=== PATIENT | female | born 2000 | race Caucasian/White ===

== ENCOUNTER 2021-03-17 04:26 | Emergency (ER) | payer OTHER, SELFPAY ==
--- NOTE | ~2021-03-17 | XR_ITS ---
EXAMINATION: XR chest 1V portable DATE: 03/17/2021 08:43 INDICATION: Overdose. TECHNIQUE: A single frontal view of the chest was obtained. COMPARISON: None. FINDINGS: There is no pneumonia, pleural effusion, or pneumothorax. The heart size is normal. IMPRESSION: 1. No acute cardiopulmonary disease. Reviewed, dictated and finalized at location A.
[2021-03-17 04:35] VITALS: BP 136/85; PULSE 81; RESP 20; TEMP 36.6; O2SAT 98
--- NOTE | 2021-03-17 05:31 | ED.OVERDOSE ---
HPI - Overdose General Chief Complaint: Overdose <Andrea Livingston MD - Last Filed: 03/17/21 07:13> Stated Complaint: blue in the face , took percocet <Andrea Livingston MD - Last Filed: 03/17/21 07:13> Time Seen by Provider: 03/17/21 05:24 <Andrea Livingston MD - Last Filed: 03/17/21 07:13> Source: patient <Andrea Livingston MD - Last Filed: 03/17/21 07:13> Mode of arrival: ambulatory <Andrea Livingston MD - Last Filed: 03/17/21 07:13> Limitations: no limitations <Andrea Livingston MD - Last Filed: 03/17/21 07:13> History of Present Illness HPI Narrative: Patient is a 20-year-old female brought in by EMS after snorting fentanyl. Patient somnolent. Patient denies any headache, dizziness, chest pain, shortness of breath abdominal pain, nausea, vomiting, diarrhea, fever or chills. Patient denies suicidal or homicidal ideations. Patient denies any thoughts of hurting herself. Patient states that she took the drug to get high. <Andrea Livingston MD - Last Filed: 03/17/21 07:13> Related Data Home Medications: Home Medications Medication Instructions Recorded Confirmed No Home Medications 03/17/21 03/17/21 <Andrea Livingston MD - Last Filed: 03/17/21 07:13> Allergies/Adverse Reactions: Allergies Allergy/AdvReac Type Severity Reaction Status Date / Time No Known Allergies Allergy Verified 03/17/21 04:41 <Andrea Livingston MD - Last Filed: 03/17/21 07:13> Review of Systems Review of Systems: All systems reviewed & are unremarkable except as noted in HPI and below <Andrea Livingston MD - Last Filed: 03/17/21 07:13> Constitutional: Constitutional: Denies body ache(s), Denies chills, Denies excessive sweating, Denies fatigue, Denies fever(s), Denies headache(s), Denies lethargy, Denies malaise, Denies weakness and Denies weight loss <Andrea Livingston MD - Last Filed: 03/17/21 07:13> Eyes: Eyes: Denies blurry vision, Denies change in vision and Denies loss of vision <Andrea Livingston MD - Last Filed: 03/17/21 07:13> ENT: Denies dizziness, Denies ear discharge, Denies headache(s), Denies lip swelling, Denies epistaxis, Denies nasal congestion, Denies neck pain, Denies throat swelling and Denies tongue swelling <Andrea Livingston MD - Last Filed: 03/17/21 07:13> Cardiovascular: Cardiovascular: Denies chest pain, Denies chest pain at rest, Denies chest pain with activity, Denies diaphoresis, Denies rapid heart rate, Denies edema, Denies irregular heart rhythm, Denies lightheadedness, Denies palpitations, Denies dyspnea and Denies dyspnea on exertion <Andrea Livingston MD - Last Filed: 03/17/21 07:13> Respiratory: Respiratory: Denies chest congestion, Denies cough, Denies hemoptysis, Denies dyspnea and Denies dyspnea on exertion <Andrea Livingston MD - Last Filed: 03/17/21 07:13> Gastrointestinal: Gastrointestinal: Denies abdominal pain, Denies melena, Denies hematochezia, Denies diarrhea, Denies nausea, Denies vomiting and Denies hematemesis <Andrea Livingston MD - Last Filed: 03/17/21 07:13> Musculoskeletal: Musculoskeletal: Denies abnormal gait, Denies deformity, Denies joint swelling, Denies limited range of motion, Denies neck pain and Denies numbness <Andrea Livingston MD - Last Filed: 03/17/21 07:13> Neurologic: Denies Abnormal speech present, Denies abnormal gait, Denies confusion, Denies dizziness, Denies headache(s), Denies focal weakness, Denies loss of vision, Denies numbness, Denies Other visual disturbances, Denies Sensory deficit (Neuro) and Denies weakness <Andrea Livingston MD - Last Filed: 03/17/21 07:13> Psychiatric: Psychiatric: Denies confusion, Denies depression, Denies auditory hallucinations, Denies homicidal ideation and Denies suicidal ideation <Andrea Livingston MD - Last Filed: 03/17/21 07:13> Endocrine: Endocrine: Denies cold intolerance, Denies excessive sweating, Denies fatigue, Denies heat intolerance and Denie
[2021-03-17 06:27] LABS: Basophils Percent Auto 0.2 % (0.2-1.2); Hematocrit 41.5 % (37.0-47.0); Hemoglobin 13.5 g/dL (12.0-15.0); Immature Granulocyte Absolute 0.12 K/mm3 (0.00-0.031); Immature Granulocyte Percent A 0.7 % (0-0.5); Lymphocytes Absolute Auto 1.29 K/mm3 (0.9-3.2); Lymphocytes Percent Auto 7.7 % (18.3-44.2); Mean Corpuscular HGB Conc 32.5 g/dl (32-36); Mean Corpuscular Hemoglobin 30.7 pg (26-34); Mean Corpuscular Volume 94.3 fl (80-100); Mean Platelet Volume 10.2 fl (7.4-10.4); Monocytes Absolute Auto 0.9 K/mm3 (0.1-0.6); Neutrophils Absolute Auto 14.6 K/mm3 (1.3-6.7); Neutrophils Percent Auto 86.4 % (45.5-73.1); Platelet Count Result 218 k/mm3 (150-375); Red Cell Distribution Width 12.8 % (11.5-14.5); White Blood Count 16.9 K/mm3 (4.5-10.0)
[2021-03-17 06:44] LABS: Barbiturate Screen Urine Negative (Negative); Benzodiazepines Screen Urine Negative (Negative)
[2021-03-17 06:59] VITALS: BP 111/63; PULSE 106; RESP 18; O2SAT 92
[2021-03-17 07:01] LABS: Amphetamine Screen Urine Negative (Negative); Cannabinoid Screen Urine Positive (Negative); Cocaine Screen Urine Negative (Negative); Methadone Screen Urine Negative (Negative); Opiate Screen Urine Negative (Negative); Phencyclidine Screen Urine Negative (Negative)
[2021-03-17 07:48] LABS: Acetaminophen < 10 ug/mL (10-30); Ethanol < 10 mg/dL (<10); Salicylate < 1.0 mg/dL (2-20)
[2021-03-17 07:50] LABS: Alanine Aminotransferase 17 U/L (4-35); Albumin Level 4.6 g/dL (3.7-5.6); Alkaline Phosphatase 59 U/L (45-116); Anion Gap 10 mmol/L (8-16); Aspartate Amino Transferase 21 U/L (14-36); Bilirubin,Total 0.3 mg/dL (0.2-1.3); Blood Urea Nitrogen 13 mg/dL (8-21); Calcium 9.7 mg/dL (8.9-10.7); Carbon Dioxide 27 mmol/L (22-30); Chloride 100 mmol/L (98-107); Estimated CRCL calculation 159 ml/min; Estimated Glomerular Filt Rate > 60; Glucose 125 mg/dL (65-110); Potassium 4.1 mmol/L (3.4-5.0); Sodium 137 mmol/L (134-143)
--- NOTE | 2021-03-17 09:08 | PC.NURSE ---
per Nancy at crisis, must call [facility] first because patient is < 22y/o.
--- NOTE | 2021-03-17 09:13 | PC.NURSE ---
Patient denied by [facility].
--- NOTE | 2021-03-17 09:16 | PC.NURSE ---
Per Vickie at Crisis she will talk with her [employer] supervisor about seeing patient because it's just an overdose and not a suicide attempt.
--- NOTE | 2021-03-17 09:32 | PC.NURSE ---
per Dr. Martinez, Dr. Livingston reported pt's mother stated pt was suicidal. This RN talked with mom and can confirm she believes pt was trying to harm herself. Mom states when pt was waking up, she was stating I just want to go back to sleep and that pt has had overdoses/attempts previously.
--- NOTE | 2021-03-17 09:38 | PC.NURSE ---
Vickie from Crisis updated on this RN findings and to come evaluate patient.
[2021-03-17 09:52] LABS: Add Urine Microscopic? YES; Appearance Urine Clear (Clear); Bilirubin Urine Negative (Negative); Blood Urine Negative (Negative); Color Urine Yellow (Yellow); Glucose Urine UA Negative (Negative); Ketones Urine Trace mg/dL (Negative); Leukocyte Esterase Ur Negative LEU/UL (Negative); Mucus Urine Few /lpf; Nitrate Urine Negative (Negative); Protein Urine 1+ mg/dL (Negative); RBC Urine 0-2 /hpf (0-2); Specific Grav Ur 1.026 (1.001-1.035); Squamous Epithelial Cell Urine Rare /hpf (Few); Urobilinogen Urine Negative mg/dL (<2.0)
[2021-03-17 11:07] VITALS: BP 118/78; PULSE 88; RESP 16; O2SAT 100
--- NOTE | 2021-03-17 11:08 | PC.NURSE ---
Per Vickie at crisis, this patient to be d/c on a safety contract.
== END 2021-03-17 11:17 | disposition home or self-care (01) ==
PROVIDERS: General Practice; Emergency Provider Emergency Medicine
DX: T40.411A Poisoning by fentanyl or fentanyl analogs, accidental (unintentional), initial encounter (principal)
CPT/HCPCS: 36415; 71045; 80053; 80307; 81001; 81025; 85025; 99284

== ENCOUNTER 2022-01-27 22:29 | Emergency (ER) | payer OTHER, SELFPAY ==
[2022-01-27 22:32] VITALS: BP 133/79; PULSE 85; RESP 18; TEMP 36.5; O2SAT 97
--- NOTE | 2022-01-28 01:56 | PC.NURSE ---
pt did not answer when called at 0155 for room. will attempt to call at later time
--- NOTE | 2022-01-28 02:27 | PC.NURSE ---
pt called for room a second time and no present in ed waiting room. LWBS-T. time of departure unknown
== END 2022-01-28 01:56 | disposition left against medical advice (07) ==
LOC: ANHED 01-28 06:06
DX: R51.9 Headache, unspecified (principal)
CPT/HCPCS: 99199

== ENCOUNTER 2022-11-26 08:20 | Emergency (ER) | payer OTHER, SELFPAY ==
[2022-11-26 08:21] VITALS: BP 142/66; PULSE 93; TEMP 36.6; O2SAT 100
--- NOTE | 2022-11-26 08:40 | ECG_ITS ---
Measurements Intervals [place] Rate: 76 P: 47 OH: 159 QRS: 15 QRSD: 82 T: 39 QT: 357 QTc: 403 Interpretive Statements SINUS RHYTHM DELAYED PRECORDIAL R/S TRANSITION BORDERLINE ECG NO PREVIOUS ECG AVAILABLE FOR COMPARISON Electronically Signed On 11-26-2022 8:43:09 CDT by Abdulaziz Johnson D.O.
[2022-11-26] MEDS: LIDOCAINE HCL 2% VISC SOLN 15 ML UDC PO (09:36)
[2022-11-26] MEDS: MAG HYDROX/AL HYDROX/SIMETH 30 ML UDC PO (09:36)
[2022-11-26 10:10] LABS: Basophils Percent Auto 0.4 % (0.2-1.2); Eosinophils Absolute Auto 0.1 K/mm3 (0-0.3); Eosinophils Percent Auto 0.5 % (0-4.4); Hematocrit 35.2 % (37.0-47.0); Hemoglobin 11.5 g/dL (12.0-15.0); Immature Granulocyte Absolute 0.12 K/mm3 (0.00-0.031); Immature Granulocyte Percent A 1.1 % (0-0.5); Lymphocytes Absolute Auto 2.06 K/mm3 (0.9-3.2); Lymphocytes Percent Auto 19.1 % (18.3-44.2); Mean Corpuscular HGB Conc 32.7 g/dl (32-36); Mean Corpuscular Hemoglobin 30.7 pg (26-34); Mean Corpuscular Volume 94.1 fl (80-100); Monocytes Absolute Auto 0.6 K/mm3 (0.1-0.6); Monocytes Percent Auto 5.5 % (2.6-8.5); Neutrophils Absolute Auto 7.9 K/mm3 (1.3-6.7); Neutrophils Percent Auto 73.4 % (45.5-73.1); Platelet Count Result 230 k/mm3 (150-375); Red Blood Count 3.74 M/mm3 (4.2-5.4); Red Cell Distribution Width 13.3 % (11.5-14.5); White Blood Count 10.8 K/mm3 (4.5-10.0)
[2022-11-26 10:39] LABS: Appearance Urine Cloudy (Clear); Bacteria Urine 1+ /hpf; Bilirubin Urine Negative (Negative); Blood Urine Negative (Negative); Color Urine Yellow (Yellow); Glucose Urine UA Negative (Negative); Ketones Urine Negative (Negative); Leukocyte Esterase Ur Trace LEU/UL (Negative); Nitrate Urine Negative (Negative); Non Pathogenic Casts 0-2; Protein Urine Negative (Negative); RBC Urine 0-2 /hpf (0-2); Squamous Epithelial Cell Urine Moderate /hpf (Few); Urobilinogen Urine 0.2 mg/dL (<2.0); WBC Urine 0-5 /hpf
[2022-11-26 10:45] LABS: Alanine Aminotransferase 18 U/L (6-35); Albumin Level 4.1 g/dL (3.5-5.1); Alkaline Phosphatase 54 U/L (38-126); Anion Gap 6 mmol/L (8-16); Aspartate Amino Transferase 18 U/L (14-36); Bilirubin,Total 0.4 mg/dL (0.2-1.3); Blood Urea Nitrogen 6 mg/dL (7-17); Calcium 8.8 mg/dL (8.4-10.2); Carbon Dioxide 25 mmol/L (22-30); Chloride 105 mmol/L (98-107); Estimated CRCL calculation 186 ml/min; Estimated Glomerular Filt Rate > 60; Glucose 80 mg/dL (65-110); Lipase 36 U/L (23-300); Potassium 3.6 mmol/L (3.4-5.0); Sodium 136 mmol/L (137-145)
[2022-11-26 10:45] LABS: Add Urine Microscopic? YES
--- NOTE | 2022-11-26 12:23 | ED.SOB ---
HPI - SOB/Dyspnea General Chief Complaint: Shortness of Breath/Dyspnea Stated Complaint: 24wks SOB Time Seen by Provider: 11/26/22 08:48 History of Present Illness HPI Narrative: Patient is a 22-year-old female who is 24 weeks that presents ER with 2 separate complaints. First complaint is achiness to her right side of her abdomen and back ongoing over the last week. Associate with some urinary frequency. She does feel the baby move. No vaginal bleeding or discharge. No fevers or chills or sweats. She is also been having some shortness of breath. Unsure of any exacerbating factors. No runny nose or sore throat or productive cough. No fevers or chills. Related Data Allergies Allergy/AdvReac Type Severity Reaction Status Date / Time No Known Allergies Allergy Verified 11/26/22 08:20 Review of Systems Review of Systems: All systems reviewed & are unremarkable except as noted in HPI and below Constitutional: Constitutional: Denies chills, Denies fatigue and Denies fever(s) ENT: Denies nasal congestion and Denies sore throat Cardiovascular: Cardiovascular: Denies chest pain, Denies rapid heart rate and Denies radiating jaw, neck or arm pain Respiratory: Respiratory: Denies chest congestion, Denies cough, Reports dyspnea and Denies wheezing Gastrointestinal: Gastrointestinal: Reports abdominal pain, Denies diarrhea, Denies nausea and Denies vomiting Genitourinary: Genitourinary: Reports nocturia, Denies dysuria and Denies flank pain PMFSH Past Medical History Medical History (Updated 11/26/22 @ 13:05 by Beka Montoya MD) Bipolar disorder Surgical History Surgical History (Updated 11/26/22 @ 12:26 by Beka Montoya MD) No history of previous surgery Social History Social History Substance use type: marijuana and other Exam Narrative: GENERAL: Well-appearing, well-nourished, and in no acute distress. HEAD: Normocephalic, atraumatic. EYES: PERRL and EOMI. ENT: Mucous membranes moist. CHEST: Clear to auscultation. No respiratory distress. HEART: Regular rate and rhythm. Normal peripheral pulses. ABDOMEN: Soft, nontender, nondistended. Gravid uterus above umbilicus. EXTREMITIES: Normal range of motion. No edema. SKIN: Warm, dry, no rash. NEURO: Alert and oriented x3. PSYCH: Normal mood and affect. Course Vital Signs Vital signs: Vital Signs Temperature 97.8 F 11/26/22 08:21 Pulse Rate 93 11/26/22 08:21 Blood Pressure 142/66 H 11/26/22 08:21 Pulse Oximetry 100 11/26/22 08:21 Oxygen Delivery Room Air 11/26/22 08:21 Temperature 97.8 F 11/26/22 08:21 Pulse Rate 93 11/26/22 08:21 Blood Pressure 142/66 H 11/26/22 08:21 Pulse Oximetry 100 11/26/22 08:21 Oxygen Delivery Room Air 11/26/22 08:21 MDM - SOB/Dyspnea Lab Data 11/26/22 10:02 11/26/22 10:25 Labs: Lab Results 11/26/22 11/26/22 Range/Units 10:02 10:25 WBC 10.8 H (4.5-10.0) K/mm3 RBC 3.74 L (4.2-5.4) M/mm3 Hgb 11.5 L (12.0-15.0) g/dL Hct 35.2 L (37.0-47.0) % MCV 94.1 (80-100) fl MCH 30.7 (26-34) pg MCHC 32.7 (32-36) g/dl RDW 13.3 (11.5-14.5) % Plt Count 230 (150-375) k/mm3 MPV 10.0 (7.4-10.4) fl Immature Gran % (Auto) 1.1 H (0-0.5) % Neut % (Auto) 73.4 H (45.5-73.1) % Lymph % (Auto) 19.1 (18.3-44.2) % [place] % (Auto) 5.5 (2.6-8.5) % Eos % (Auto) 0.5 (0-4.4) % Baso % (Auto) 0.4 (0.2-1.2) % Lymph # (Auto) 2.06 (0.9-3.2) K/mm3 [place] # (Auto) 0.6 (0.1-0.6) K/mm3 Eos # (Auto) 0.1 (0-0.3) K/mm3 Baso # (Auto) 0.0 (0.0-0.1) K/mm3 Abs Immat Gran (auto) 0.12 H (0.00-0.031) K/mm3 Absolute Neuts (auto) 7.9 H (1.3-6.7) K/mm3 Absolute Nucleated RBC 0.0 (0.0-0.012) K/mm3 Nucleated RBC % 0.0 (0.0-0.2) % Sodium 136 L (137-145) mmol/L Potassium 3.6 (3.4-5.0) mmol/L Chloride 105 (98-107) mmol/L Carbon Dioxide 25 (22-30) mmol/L Anio
== END 2022-11-26 13:25 | disposition home or self-care (01) ==
PROVIDERS: Emergency Provider Emergency Medicine; PCP Obstetrics & Gynecology
DX: O26.892 Other specified pregnancy related conditions, second trimester (principal); R10.9 Unspecified abdominal pain; R06.00 Dyspnea, unspecified; Z3A.24 24 weeks gestation of pregnancy; R94.31 Abnormal electrocardiogram [ECG] [EKG]
CPT/HCPCS: 36415; 80053; 81001; 83690; 85025; 93005; 99283; A9270

== ENCOUNTER 2023-01-20 10:59 | Outpatient (CLI) | payer OTHER, SELFPAY ==
--- NOTE | ~2023-01-20 | US_ITS ---
Limited Abdominal Sonogram: Real-time sonographic imaging of the right upper quadrant was performed. Clinical History: Right upper quadrant pain Findings: The liver appears normal with no evidence of mass lesion or bile duct dilatation. Main por jean vein demonstrates normal direction of flow. The gallbladder is well distended, and appears normal with no evidence of gallstone or wall thickening. The common bile duct measures 4 mm. The visualize d pancreas, aorta, and IVC are unremarkable. Impression: No significant abnormality seen. Reviewed, dictated and finalized at location M. Impression: No significant abnormality seen.
== END 2023-01-20 11:00 | disposition home or self-care (01) ==
PROVIDERS: PCP Obstetrics & Gynecology; Visit Provider Obstetrics & Gynecology
DX: R10.11 Right upper quadrant pain (principal)
CPT/HCPCS: 76705

== ENCOUNTER 2023-02-25 05:45 | Inpatient (IN) | payer OTHER, MEDICAID, SELFPAY ==
[2023-02-25] VITALS (126 sets, daily range): BP systolic 93–164; BP diastolic 51–124; PULSE 66–129; RESP 15–18; TEMP 36.4–37.5; O2SAT 88–100; BMI 37.0
--- NOTE | 2023-02-25 06:39 | PM.IMHP ---
H&P: HPI History of Present Illness Date/Time: 02/25/23 06:39 Chief Complaint: Rupture membranes at 36 weeks Narrative: this is a 22-year-old 1 para 0 whose last menstrual period was 06/08/2022, EDC is 03/24/2023, confirmed by early ultrasound and visit who presents at 36 weeks gestation with spontaneous rupture membranes prior to admission. Her has been uncomplicated thus far. Her group B strep screen is pending. She ruptured at 5:00 a.m. and is not nancy and we of discussed starting Pitocin PMFSH Past Medical History Medical History Bipolar disorder Surgical History Surgical History No history of previous surgery Family History Family History Other Unknown family medical history Social History Social History Substance use: never Substance use type: marijuana and other Spiritual care concerns: No Meds Home Medications and Allergies Home Medications Medication Instructions Recorded Confirmed Type vits no.126-ferrous fum 1 tablet PO DAILY 02/22/23 02/22/23 History 28 mg iron-folic acid 800 mcg tablet (Classic ) Allergies Allergy/AdvReac Type Severity Reaction Status Date / Time No Known Allergies Allergy Verified 02/22/23 12:17 Vital Signs Vital Signs - 24 hr 02/25/23 06:15 02/25/23 06:30 Pulse Rate 85 91 Blood Pressure 131/98 H 122/84 Exam Const: General: cooperative, healthy appearing and comfortable Nutritional Appearance: average body habitus Orientation/consciousness: oriented to person, oriented to place and oriented to time HENMT: Head: normal to inspection Resp: Effort & Inspection: normal respiratory effort Cardio: Rate: regular rate Rhythm: regular rhythm Heart sounds: S1 normal heart sound present and S2 normal heart sound present GI: Inspection: normal to inspection ( gravid soft uterus) : Speculum Exam - Vagina: normal appearance of the vagina and tissue present in vagina ( clear fluid seen) Speculum Exam - Cervix: normal appearance of the cervix ( 1cm thick. FHTs reassuring) Assessment and Plan Assessment and plan (1) Premature rupture of membranes (PROM) at term with onset of labor after 24 hours, antepartum: Code(s): O42.12 - Full-term premature rupture of membranes, onset of labor more than 24 hours following rupture Status: Acute Plan will begin Pitocin. We will check for group B strep status but in the meantime treat for ampicillin. She has an epidural and
--- NOTE | 2023-02-25 07:04 | LDADM ---
This patient, Susanne Gibson, was admitted to Labor/Delivery/Recovery 106 on 02/25/23 at 05:45. Plans for labor, pain management and were discussed with patient. Patient/family oriented to hospital policies and general routines including ID bracelet, bed and alarms, visiting hours, pain management, procedures, bathroom and other care routines, personal items, smoking policy, room service/diet and guest tray routines, infant security routines, and visiting hours. Patient/Family are encouraged to report perceived risks to care and to ask questions if they do not understand what they are told or what they should do. See OBIX for further documentation.
[2023-02-25 07:22] LABS: Basophils Percent Auto 0.3 % (0.2-1.2); Eosinophils Absolute Auto 0.1 K/mm3 (0-0.3); Eosinophils Percent Auto 0.6 % (0-4.4); Hematocrit 32.1 % (37.0-47.0); Hemoglobin 10.5 g/dL (12.0-15.0); Immature Granulocyte Absolute 0.12 K/mm3 (0.00-0.031); Lymphocytes Absolute Auto 2.29 K/mm3 (0.9-3.2); Lymphocytes Percent Auto 19.7 % (18.3-44.2); Mean Corpuscular HGB Conc 32.7 g/dl (32-36); Mean Corpuscular Hemoglobin 28.5 pg (26-34); Mean Platelet Volume 9.6 fl (7.4-10.4); Monocytes Absolute Auto 0.7 K/mm3 (0.1-0.6); Monocytes Percent Auto 6.1 % (2.6-8.5); Neutrophils Absolute Auto 8.4 K/mm3 (1.3-6.7); Neutrophils Percent Auto 72.3 % (45.5-73.1); Platelet Count Result 258 k/mm3 (150-375); Red Blood Count 3.69 M/mm3 (4.2-5.4); Red Cell Distribution Width 13.3 % (11.5-14.5); White Blood Count 11.6 K/mm3 (4.5-10.0)
[2023-02-25] MEDS: LACTATED RINGERS 1,000 ML 125 ML IV CONT (07:33)
[2023-02-25] MEDS: AMPICILLIN 2 GM/NS 100 ML 2 GM/100 ML BAG IVPB (07:34)
[2023-02-25 08:05] LABS: Rapid Plasma Reagin Non-Reactive (NonReactive)
--- NOTE | 2023-02-25 08:21 | WPDANESEPP ---
Anes - Eval Pre Procedure Procedure: Labor epidural Date/Time: 02/25/23 08:21 Surgeon: griffin Kumari Preop Diagnosis: Abdominal pain with contractions Pre Op Diagnosis: SROM Patient Data Age: 22 Gender: F Height: 1.63 m Weight: 98 kg Last Vital Signs Temp 98.2 F 02/25/23 07:00 Pulse 91 02/25/23 08:00 Resp 18 02/25/23 07:00 BP 138/124 H 02/25/23 08:00 O2 Del Method Room Air 02/25/23 07:03 Allergies Allergy/AdvReac Type Severity Reaction Status Date / Time No Known Allergies Allergy Verified 02/22/23 12:17 Home Medications Medication Instructions Recorded Confirmed Type vits no.126-ferrous fum 1 tablet PO DAILY 02/22/23 02/22/23 History 28 mg iron-folic acid 800 mcg tablet (Classic ) Laboratory Tests 02/25/23 06:38 WBC 11.6 H K/mm3 (4.5-10.0) RBC 3.69 L M/mm3 (4.2-5.4) Hgb 10.5 L g/dL (12.0-15.0) Hct 32.1 L % (37.0-47.0) MCV 87.0 fl (80-100) MCH 28.5 pg (26-34) MCHC 32.7 g/dl (32-36) RDW 13.3 % (11.5-14.5) Plt Count 258 k/mm3 (150-375) MPV 9.6 fl (7.4-10.4) Immature Gran % (Auto) 1.0 H % (0-0.5) Neut % (Auto) 72.3 % (45.5-73.1) Lymph % (Auto) 19.7 % (18.3-44.2) [place] % (Auto) 6.1 % (2.6-8.5) Eos % (Auto) 0.6 % (0-4.4) Baso % (Auto) 0.3 % (0.2-1.2) Lymph # (Auto) 2.29 K/mm3 (0.9-3.2) [place] # (Auto) 0.7 H K/mm3 (0.1-0.6) Eos # (Auto) 0.1 K/mm3 (0-0.3) Baso # (Auto) 0.0 K/mm3 (0.0-0.1) Abs Immat Gran (auto) 0.12 H K/mm3 (0.00-0.031) Absolute Neuts (auto) 8.4 H K/mm3 (1.3-6.7) Absolute Nucleated RBC 0.0 K/mm3 (0.0-0.012) Nucleated RBC % 0.0 % (0.0-0.2) RPR Non-reactive (NonReactive) Blood Type O Positive Antibody Screen Negative : gestational age HCG: positive Patient hx anesthesia problems: none Family hx anesthesia problems: none Results Review: All pre-operative results and documents have been reviewed as part of the pre-operative evaluation. [facility] Past Medical History Medical History Bipolar 1 disorder Bipolar disorder Morbid obesity and not yet delivered Surgical History Surgical History No history of previous surgery Family History Family History Other Unknown family medical history Social History Social History Smoking status: Current every day smoker Tobacco type: cigarettes Second hand tobacco smoke exposure: Yes Substance use: never Substance use type: marijuana and other Lack of Transportation: No Lack of Food: Never True Current Housing: I Have Housing Concerned About Future Housing: No Difficulty Paying Gas/Electric Bills: No Difficulty Paying for Meds: No Currently Unemployed: No Education: High School Diploma/GED Difficulty w/ Childcare or Family Care: No Spiritual care concerns: No Exam Day of Procedure 02/25/23 08:21 Patient weight: morbidly obese Lungs: clear to auscultation
[2023-02-25] MEDS: OXYTOCIN 30 UNITS/NS 500 ML 30 UNITS/500 ML BAG 6 UNITS IV CONT (09:00)
[2023-02-25] MEDS: fentaNYL CITRATE INJ (*CRX) 100 MCG/2 ML VIAL IV PUSH (09:00)
--- NOTE | 2023-02-25 11:04 | PM.OBPNLAB ---
Pain Control Date/time seen: 02/25/23 11:04 Pain control: tolerating well and epidural Pelvic Exam Dilation (cm): 3 Effacement (%): 80 station: -2 Amniotic membrane status: Leaking
[2023-02-25] MEDS: AMPICILLIN 1 GM/NS 50 ML 1 GM/50 ML BAG IVPB (12:07)
[2023-02-25] MEDS: ONDANSETRON INJ 4 MG/2 ML VIAL IV PUSH (12:10)
--- NOTE | 2023-02-25 12:23 | PM.OBPNLAB ---
Pain Control Date/time seen: 02/25/23 12:23 Pain control: tolerating well and epidural Pelvic Exam Dilation (cm): 6 Effacement (%): 80 station: -2 Amniotic membrane status: Leaking Contractions Monitor mode: Internal
--- NOTE | 2023-02-25 15:37 | PM.OBPRVD ---
OB - Delivery Note Procedure Delivery date: 02/25/23 Events: Premature Rupture of Membranes Delivery augmentation: Pitocin Delivery monitor: External FHT and Internal Uterine Route of delivery: Episiotomy description: None Laceration Description: None Quantitative Blood Loss (ml): 60 Anesthesia type: Epidural Disposition: Floor Baby Date of : 02/25/23 Time of : 15:28 Weeks of gestation at delivery: 36 Infant gender: Male presentation: vertex position: Right Occiput Anterior Placenta delivery description: Spontaneous Cord Vessel Description: 3 Vessels score one minute: 8 score five minutes: 9 Narrative: amp x 2 for gbs
--- NOTE | 2023-02-25 15:39 | PM.DS ---
DS: Admitting Diagnosis Discharge Date 02/25/2023 Admitting Diagnosis Premature rupture of membranes /positive group B strep DS: Discharge Diagnosis Discharge Diagnosis (1) Premature rupture of membranes (PROM) at term with onset of labor after 24 hours, antepartum: Code(s): O42.12 - Full-term premature rupture of membranes, onset of labor more than 24 hours following rupture Status: Acute (2) Positive testing for group B Streptococcus: Code(s): B95.1 - Streptococcus, group B, as the cause of diseases classified elsewhere Status: Acute DS: Summary Hospital Course Reason for hospitalization: patient was admitted at 36 weeks gestation with spontaneous rupture membranes and positive group B strep Hospital Course: patient underwent spontaneous vaginal delivery with adequate group B strep prophylaxis on 02/25/2023. Hospital course unremarkable. She remained afebrile. She was up, voiding without difficulty, ambulating, eating regular diet, general without complaints. Time Spent with Patient Time attestation: Total time spent providing and/or coordinating discharge services: Exam Const: General: cooperative, healthy appearing and comfortable Nutritional Appearance: average body habitus Orientation/consciousness: oriented to person, oriented to place and oriented to time HENMT: Head: normal to inspection Resp: Effort & Inspection: normal respiratory effort Cardio: Rate: regular rate Rhythm: regular rhythm Heart sounds: S1 normal heart sound present and S2 normal heart sound present GI: Inspection: normal to inspection ( Fundus firm below the umbilicus) DS: Data Data Completed and Pending Labs on day of discharge: Labs from last 24 hours 02/25/23 06:38 WBC 11.6 H RBC 3.69 L Hgb 10.5 L Hct 32.1 L MCV 87.0 MCH 28.5 MCHC 32.7 RDW 13.3 Plt Count 258 MPV 9.6 Immature Gran % (Auto) 1.0 H Neut % (Auto) 72.3 Lymph % (Auto) 19.7 [place] % (Auto) 6.1 Eos % (Auto) 0.6 Baso % (Auto) 0.3 Lymph # (Auto) 2.29 [place] # (Auto) 0.7 H Eos # (Auto) 0.1 Baso # (Auto) 0.0 Abs Immat Gran (auto) 0.12 H Absolute Neuts (auto) 8.4 H Absolute Nucleated RBC 0.0 Nucleated RBC % 0.0 RPR Non-reactive Blood Type O Positive Antibody Screen Negative Discharge Plan Discharge Attending physician on discharge: Benjamin Cordova Discharging Clinician: Benjamin Cordova Patient Disposition: Home, Self-Care Activity: may shower and pelvic rest Diet: heart healthy Wound Care Instructions: follow printed instructions Discharge Instructions: Education: Mom and Baby Guide Given to: Mother Follow-Up: Call your delivering provider's office for an appointment to be seen in: 6 Weeks Mom and baby should come to the [facility] for the follow-up appointment. Appointment Date/Time: TBD What to expect at your follow-up visit: Physical Assessment Call [phone] if you are unable to keep your appointment time. BREAST CARE: * Wear a snug supportive bra. * For engorgement discomfort: Breast Feeding: * Apply warm moist washcloths * Express milk as needed to relieve engorgement * Wear loose clothing Bottle Feeding: * May apply ice packs * For sore nipples: * Identify correct latch-on * Apply warm moist washcloths before and after nursing * Air dry nipples after nursing * May apply Lansinoh cream to nipples EPISIOTOMY/PERINEAL CARE: * Until bleeding stops, use your catarino bottle after urinating * Change your pad frequently throughout the day * You may take sitz baths several times a day (fill your bathtub with warm water and soak for 20 minutes.) Do NOT bathe in the water * No tub baths until seen by your physician - You may shower ACTIVITY: * Rest as much as possible. * Do not exercise or lift anything heavier than your baby (such as laundry
[2023-02-25] MEDS: OXYTOCIN 30 UNITS/NS 500 ML 30 UNITS/500 ML BAG 125 UNITS IV CONT (16:02)
--- NOTE | 2023-02-25 18:10 | OBPPTRN ---
Patient transferred to post room # 290 via wheelchair. Oriented to unit, room, information board, rooming in, admission packet and security measures. Patient verbalizes understanding.
[2023-02-26 04:12] VITALS: BP 123/69; PULSE 80; RESP 18; TEMP 36.3; O2SAT 100
[2023-02-26 04:41] LABS: Hematocrit 31.5 % (37.0-47.0); Hemoglobin 9.9 g/dL (12.0-15.0)
[2023-02-26 08:05] VITALS: BP 119/69; PULSE 75; RESP 16; TEMP 36.2; O2SAT 98
[2023-02-26] MEDS: MULTIVIT/MIN/PREN/FOL AC/IRON TABLET 1 TAB PO (08:10)
[2023-02-26] MEDS: POLYSACCHARIDE IRON COMPLEX 150 MG CAPSULE PO ×2 (08:10→20:03)
[2023-02-26] MEDS: IBUPROFEN 600 MG TABLET PO ×2 (08:11→20:03)
[2023-02-26] MEDS: DOCUSATE SODIUM 100 MG CAPSULE PO ×2 (08:11→20:03)
--- NOTE | 2023-02-26 10:59 | PM.OBPNVD ---
OB - PN: Subj Subjective Date/time seen: 02/26/23 10:59 Narrative: Pain OK. Would like circumcision for son. OB - PN: Obj Data Labs 02/26/23 03:04 Labs: Laboratory Results - last 24 hr 02/26/23 03:04 Hgb 9.9 L Hct 31.5 L OB - PN A/P Plan day: 1 Comments: A: PPD#1, doing well. P: Routine care. Exam Psych: Other: AVSS ABD soft, nontender, fundus firm EXT nontender
--- NOTE | 2023-02-26 13:14 | WPDANLDPN2 ---
Anes-Prog Note L&D Date/Time: 02/26/23 13:14 Comfortable throughout: labor and delivery Neuraxial method: epidural Epidural/Spinal procedure site: clean & non-tender Neuro status: Neuro function grossly intact. Cardiovascular status: normal Respiratory status: normal Airway patency: baseline Mental status: baseline Post-Op hydration status: normal Vital Signs: Last Vital Signs Temp 36.2 C L 02/26/23 08:05 Pulse 75 02/26/23 08:05 Resp 16 02/26/23 08:05 BP 119/69 02/26/23 08:05 Pulse Ox 98 02/26/23 08:05 O2 Del Method Room Air 02/26/23 08:05 Pain score (VAS): 3/10 I/O: Intake & Output 02/25/23 02/26/23 02/26/23 23:59 07:59 15:59 Output Total 60 Balance -60 Post-procedural complaints: none Patient feedback: Patient satisfied with anesthetic care.
[2023-02-26] MEDS: TETANUS,DIPHTHERIA,AC PERTUSSIS ADULT (0.5 ML) BOOSTRIX IM (20:05)
[2023-02-26 20:25] VITALS: BP 125/75; PULSE 83; RESP 16; TEMP 36.6
[2023-02-27] MEDS: MULTIVIT/MIN/PREN/FOL AC/IRON TABLET 1 TAB PO (10:30)
[2023-02-27] MEDS: POLYSACCHARIDE IRON COMPLEX 150 MG CAPSULE PO ×2 (10:30→16:52)
[2023-02-27 10:31] VITALS: BP 133/78; PULSE 83; RESP 18; TEMP 36.6; O2SAT 98
[2023-02-27] MEDS: DOCUSATE SODIUM 100 MG CAPSULE PO (10:31)
[2023-02-27] MEDS: IBUPROFEN 600 MG TABLET PO (10:31)
--- NOTE | 2023-02-27 18:25 | PC.NURSE ---
1815 Pt D/C'd to a NCB.
== END 2023-02-27 18:15 | disposition home or self-care (01) | DRG 805 ==
LOC: ANHLDR 15:42 → ANHOB2 02-27 13:09 → ANHLDR 03-01 09:48 → ANHOB2 03-01 09:48
PROVIDERS: Admitting Provider Obstetrics & Gynecology; Visit Provider Obstetrics & Gynecology
DX: O42.013 Preterm premature rupture of membranes, onset of labor within 24 hours of rupture, third trimester (principal); O60.14X0 Preterm labor third trimester with preterm delivery third trimester, not applicable or unspecified; Z37.0 Single live birth; Z3A.36 36 weeks gestation of pregnancy; O99.824 Streptococcus B carrier state complicating childbirth; O69.82X0 Labor and delivery complicated by other cord entanglement, without compression, not applicable or unspecified
CPT/HCPCS: 36415; 85014; 85018; 85025; 86592; 86850; 86900; 86901; 90715; A9270; J0290; J2405; J2590; J2795; J3010; J7120

== ENCOUNTER 2024-02-29 14:33 | Outpatient (CLI) | payer OTHER, MEDICAID, SELFPAY | END 2024-02-29 14:34 | disposition home or self-care (01) | LOC: ANHSURGERY 14:36 | PROVIDERS: Visit Provider Obstetrics & Gynecology | DX: Z01.818 Encounter for other preprocedural examination (principal); R10.2 Pelvic and perineal pain | CPT/HCPCS: 36415; 86850; 86900; 86901 ==

== ENCOUNTER 2024-03-02 00:18 | Day surgery (SDC) | payer OTHER, MEDICAID, SELFPAY ==
[2024-02-29 13:23] VITALS: BMI 34.4
--- NOTE | 2024-02-29 13:29 | PC.NURSE ---
Report to the Outpatient Waiting Room, entrance under the green pavilion located off [facility], at time _0600_ on date _[id number]_. Planned Procedure Time: _0730_. Time changes happen often and if your time is changed the preop area will call you the afternoon before. - You and your visitor will be asked to self-screen and do not enter if you have any COVID symptoms. - A mask is optional within the hospital at this time. Patients may have clear liquids (water, carbonated beverages, clear teas, apple juice) until 3 hours prior to surgery with a maximum of 20 ounces. - No food from midnight until time of surgery Take the following medications with a SIP of water the morning of surgery: ___None DO NOT STOP ANY OF YOUR OTHER PRESCRIPTION MEDICATIONS PRIOR TO SURGERY ?EXCEPT THE FOLLOWING Medications to discontinue per physician None Date to take last dose Please no make-up, nail turkmen, hairspray, perfume, deodorant, or body powder the day of surgery. No jewelry (including any body piercings) or valuables the day of surgery, leave them at home. Please take a shower or bath the night before, or the morning of, surgery with an antibacterial soap. Wear comfortable, loose fitting clothing. - Jewelry must be removed prior to entering the operating room. Rings and piercings that are not removed may be cut off. - The hospital will not accept responsibility for valuables. - Please leave all valuables, including medications, at home the day of surgery. If you are going home after surgery, a licensed feeder driver must drive you home. - NO public transportation without another adult if you receive anesthesia. - We recommend that an adult stay with you for 24 hours following discharge. - We also recommend that you do not drive, make important decision, drink alcoholic beverages, or take any drugs that were not prescribed by your health care provider for at least 24 hours after your discharge time. Follow any additional instructions given to you from your surgeon. If you or anyone in your household have experienced Covid symptoms in the past week, please notify your surgeon or the nurse liaison at the phone number below for possible testing. Telephone instructions given to ___Abbigail___and asked if any additional questions and then verbalized understanding. Patient advised to call surgeon office or pre surgery nurse liaison [phone] if any additional questions.
--- NOTE | 2024-03-01 06:58 | PM.IMHP ---
H&P: HPI History of Present Illness Date/Time: 03/01/24 06:58 Chief Complaint: Pelvic pain Narrative: 23-year-old female admitted for laparoscopy secondary to pelvic pain. Ultrasound was unhelpful. Risks and benefits reviewed including the occlusive of , aspiration pneumonia, bleeding, transfusion, perforation injury to bowel, bladder, ureters, or other internal organs with need for open laparotomy. She received the [employer] handout entitled laparoscopy. She had all questions answered. She asked to proceed PMFSH Past Medical History Medical History Bipolar 1 disorder Bipolar disorder Morbid obesity and not yet delivered Surgical History Surgical History No history of previous surgery Family History Family History Other Unknown family medical history Social History Social History Smoking status: Former smoker Tobacco type: cigarettes Smokeless tobacco user: other Second hand tobacco smoke exposure: Yes Smoking end date: 11/29/23 Alcohol intake: current Substance use: never Substance use type: marijuana Other substance usage details: daily Lack of Transportation: No Lack of Food: Never True Current Housing: I Have Housing Concerned About Future Housing: No Difficulty Paying Gas/Electric Bills: No Difficulty Paying for Meds: No Currently Unemployed: No Education: High School Diploma/GED Difficulty w/ Childcare or Family Care: No Living arrangements: with family Spiritual care concerns: No Meds Home Medications and Allergies Home Medications Medication Instructions Recorded Confirmed Type No Home Medications 02/29/24 02/29/24 History Allergies Allergy/AdvReac Type Severity Reaction Status Date / Time No Known Allergies Allergy Verified 02/29/24 13:22 Exam Const: General: cooperative, healthy appearing and comfortable Nutritional Appearance: average body habitus Orientation/consciousness: oriented to person, oriented to place and oriented to time Resp: Effort & Inspection: normal respiratory effort Cardio: Rate: regular rate Rhythm: regular rhythm Heart sounds: S1 normal heart sound present and S2 normal heart sound present GI: Inspection: normal to inspection : External Female Exam: normal external appearance Speculum Exam - Vagina: normal appearance of the vagina Speculum Exam - Cervix: normal appearance of the cervix Bimanual exam- vagina & uterus: Uterine tenderness Bimanual Exam- Adnexa, other: tender bilaterally Assessment and Plan Assessment and plan (1) Pelvic pain: Code(s): R10.2 - Pelvic and perineal pain Status: Acute Assessment and Plan: diagnostic laparoscopy
[2024-03-02] VITALS (9 sets, daily range): BP systolic 104–135; BP diastolic 51–91; PULSE 58–104; RESP 12–16; TEMP 36.2–36.3; O2SAT 94–100
--- NOTE | 2024-03-02 05:51 | WPDHPUPDATE1 ---
History and Physical Update Update Date/Time: 03/02/24 05:51 History and Physical has been reviewed, including an updated exam of the patient. There are NO changes in the patient's condition. Risks, benefits, and alternatives have been discussed and questions answered. Patient agrees to proceed with procedure.
[2024-03-02] MEDS: ACETAMINOPHEN 500 MG TABLET 1000 MG PO (06:25)
[2024-03-02] MEDS: LACTATED RINGERS 1,000 ML 30 ML IV CONT (06:35)
[2024-03-02] MEDS: KETOROLAC 15 MG/ML VIAL (*BKC) IV PUSH (06:39)
--- NOTE | 2024-03-02 07:08 | WPDANESEPPF ---
Anes - Initial Pre Proc Eval Procedure: Operation Date: 03/02/24 07:30 Proposed Procedures p Diagnostic Laparoscopy - Benjamin Kumari MD Date/Time: 03/02/24 07:08 Surgeon: Benjamin Kumari MD Pre Op Diagnosis: pelvic pain, irregular bleeding, dyspareunia Patient Data Age: 23 Gender: F Height: 1.63 m Weight: 87.1 kg Last Vital Signs Temp 36.3 C L 03/02/24 06:15 Pulse 72 03/02/24 06:15 Resp 16 03/02/24 06:15 BP 135/91 H 03/02/24 06:15 Pulse Ox 99 03/02/24 06:15 O2 Del Method Room Air 03/02/24 06:15 Allergies Allergy/AdvReac Type Severity Reaction Status Date / Time No Known Allergies Allergy Verified 03/02/24 06:09 Home Medications Medication Instructions Recorded Confirmed Type hydrocodone 5 mg-acetaminophen 325 1 tablet PO Q4H PRN pain #20 tabs 03/02/24 Rx mg tablet Patient hx anesthesia problems: none Family hx anesthesia problems: none Results Review: All pre-operative results and documents have been reviewed as part of the pre-operative evaluation. [facility] Past Medical History Medical History Bipolar 1 disorder Bipolar disorder Morbid obesity and not yet delivered Surgical History Surgical History No history of previous surgery Family History Family History Other Unknown family medical history Social History Social History Smoking status: Former smoker Tobacco type: cigarettes Smokeless tobacco user: other Second hand tobacco smoke exposure: Yes Smoking end date: 11/29/23 Alcohol intake: current Substance use: never Substance use type: marijuana Other substance usage details: daily Lack of Transportation: No Lack of Food: Never True Current Housing: I Have Housing Concerned About Future Housing: No Difficulty Paying Gas/Electric Bills: No Difficulty Paying for Meds: No Currently Unemployed: No Education: High School Diploma/GED Difficulty w/ Childcare or Family Care: No Living arrangements: with family Spiritual care concerns: No Anes - Eval Final PreProcedure Day of Procedure 03/02/24 07:08 Patient weight: obese Heart: regular rate and rhythm Lungs: clear to auscultation Airway: Mallampati scale class II Neurological: alert and oriented Last oral intake: >/= 8 hours ASA classification: III Emergent: no Anesthetic plan: proceed Anesthesia type and monitoring: general ETT and standard monitoring Results Review: All pre-operative results and documents have been reviewed as part of the pre-operative evaluation. Informed Consent: The patient's anesthetic plan and its attendant risks and benefits were discussed with the patient/family/POA. Questions were solicited and answers provided to the satisfaction of the patient/family/POA.
[2024-03-02] MEDS: SCOPOLAMINE 1 MG PATCH 1 PATCH TRANSDERM (07:17)
--- NOTE | 2024-03-02 07:58 | P.OP_ITS ---
Procedure Note - Detailed Date of Procedure 03/02/24 Pre-op Diagnosis pelvic pain, irregular bleeding, dyspareunia Post-op Diagnosis Other ( pelvic pain /irregular bleeding / dyspareunia/endometriosis) Procedure Performed laparoscopy with destruction of endometriosis Surgeon Benjamin Kumari MD Anesthesia General Indications 23-year-old female with pelvic pain and irregular bleeding refractory to medical therapy Findings normal-appearing ovaries and tubes. Areas of powder burn blistered endometriosis along each uterosacral ligament Description of Procedure patient was prepped draped normal sterile fashion placed in the dorsal lithotomy position. Under excellent general tracheal anesthesia weighted speculum placed in posterior fornix vagina. Anterior lip of the cervix grasped with single-tooth tenaculum. Sprague's cannula inserted the cervix and attached to the single-tooth to be used later for uterine manipulation. The bladder emptied of a few cc of clear urine in the weighted speculum was removed. Gloves were changed. Supraumbilical incision made the Veress needle passed in the abdomen. Abdomen filled with CO2 gas to 15mm Hg. The 5mm trocar advanced under direct visualization assuring no injury. Patient placed in Trendelenburg and a suprapubic incision made. The 5mm trocar advanced in the abdomen. Downside visualized and no injury seen. Patient placed in Trendelenburg and a suprapubic incision made. The 5mm trocar advanced under direct visualization assuring no injury. The areas of endometriosis were seen in photo documentation undertaken. Using cauterization at with monopolar cautery at 35 w per 2nd these areas were completely destroyed. Irrigation undertaken to clear. The appendix liver gallbladder all appeared within normal limits and photo documentation u ndertaken. The lower site removed. The gas removed from the abdomen. The upper site removed. Incisions closed with 4 Monocryl and glue. Instruments removed from the vagina the patient was awakened. She went to recovery in satisfactory condition. All sponge, needle, instrument counts were correct. There were no immediate complications Estimated Blood Loss 5 Drains No Packing No Pathology None sent Complications No immediate complications Condition Stable Disposition PACU
[2024-03-02] MEDS: fentaNYL CITRATE INJ (*CRX) 100 MCG/2 ML VIAL 25 MCG IV PUSH ×2 (08:39→08:41)
[2024-03-02] MEDS: oxyCODONE HCL (*CRX) 5 MG TAB IR PO (09:21)
== END 2024-03-02 09:50 | disposition home or self-care (01) ==
PROVIDERS: Visit Provider Obstetrics & Gynecology
PROC: (CPT 49320; principal; 2024-03-02 07:30)
DX: N80.3C3 Endometriosis of bilateral uterosacral ligament(s), unspecified depth (principal); Z87.891 Personal history of nicotine dependence; F12.90 Cannabis use, unspecified, uncomplicated; E66.9 Obesity, unspecified; Z68.33 Body mass index [BMI] 33.0-33.9, adult
CPT/HCPCS: 58662; 36415; 86850; 86900; 86901; A9270; J0330; J1100; J1885; J2250; J2405; J2704; J3010; J7120